=== PATIENT | female | born 1970 | race Caucasian/White ===

== ENCOUNTER 2019-07-18 13:55 | Outpatient (CLI) | payer OTHER, SELFPAY ==
--- NOTE | 2019-07-18 | US_ITS ---
WS: [id number] ULTRASOUND PELVIS TECHNIQUE: Transabdominal and transvaginal. ULTRASOUND PELVIS TECHNIQUE: Transabdominal. CLINICAL INFORMATION: EXCESSIVE AND FREQUENT MENSTARION W/ IRREGULAR CYCLE LMP: : No. COMPARISON: None. FINDINGS: Uterus Orientation: Anteverted. Size: 9.5 cm x 7.1 cm x 5.6 cm. Masses: None. Cervix: Nabothian cyst Endometrium: Echogenic and thickened Endometrium thickness: 1.5 cm. Adnexa: Numerous bilateral cystic lesions in both ovaries. Largest cysts range in size from 2 to 3 cm Right ovary size: 3.1 cm x 2.6 cm x 2.3 cm. Right ovary volume: 9.9 ccm3. Left ovary size: 4.8 cm x 3.1 cm x 2.8 cm. Left ovary volume: 22.0 ccm3 Free fluid: Present Other findings: None. US/US pelvic with transvaginal IMPRESSION: 1. Thickened endometrium measuring 15 mm. 2. Several bilateral ovarian cysts the largest in the right measuring 3.1 x 2. 3 cm and the largest in the left measuring 2.5 x 2.4 CM. 3. Small amount of free fluid in the cul-de-sac.
== END 2019-07-18 13:56 | disposition home or self-care (01) ==
PROVIDERS: Family Provider Nurse Practitioner; Visit Provider Nurse Practitioner
DX: N92.1 Excessive and frequent menstruation with irregular cycle (principal); R93.89 Abnormal findings on diagnostic imaging of other specified body structures; N83.202 Unspecified ovarian cyst, left side; N83.201 Unspecified ovarian cyst, right side
CPT/HCPCS: 76830; 76856

== ENCOUNTER → 2019-08-14 10:25 | Outpatient (BNVA) | payer OTHER, SELFPAY | PROVIDERS: Family Provider Nurse Practitioner; Referring Provider Nurse Practitioner; Visit Provider Obstetrics & Gynecology | DX: N93.9 Abnormal uterine and vaginal bleeding, unspecified (principal) | CPT/HCPCS: 84146; 84443; 85025 ==

== ENCOUNTER → 2019-08-29 13:51 | Outpatient (BNVA) | payer OTHER, SELFPAY | PROVIDERS: Family Provider Nurse Practitioner; Visit Provider Obstetrics & Gynecology | DX: N93.9 Abnormal uterine and vaginal bleeding, unspecified (principal) | CPT/HCPCS: 88305 ==

== ENCOUNTER 2019-09-07 13:43 | Outpatient (CLI) | payer OTHER, SELFPAY ==
--- NOTE | 2019-09-07 13:49 | MM_ITS ---
WS: [id number] BILATERAL SCREENING DIGITAL MAMMOGRAM WITH CAD HISTORY: SCREENING COMPARISON: 08/05/2018 and 07/29/2017 Bilateral CC and MLO views submitted. Computer aided detection analyzed. Breast composition: The breasts are heterogeneously dense, which may obscure small masses. No suspici ous masses, microcalcifications or architectural distortion. MM/[place] [id number] IMPRESSION: BI-RADS: 1-Negative FOLLOW UP: 1 Year Follow-up
== END 2019-09-07 13:44 | disposition home or self-care (01) ==
LOC: RADSHAW 13:46
PROVIDERS: PCP Nurse Practitioner; Visit Provider Nurse Practitioner
DX: Z12.31 Encounter for screening mammogram for malignant neoplasm of breast (principal)
CPT/HCPCS: 77067

== ENCOUNTER → 2020-01-02 08:55 | Outpatient (BNVA) | payer OTHER, SELFPAY | PROVIDERS: PCP Nurse Practitioner; Visit Provider Obstetrics & Gynecology | DX: Z12.4 Encounter for screening for malignant neoplasm of cervix (principal) | CPT/HCPCS: 88175 ==

== ENCOUNTER 2020-11-08 07:11 | Outpatient (CLI) | payer OTHER, SELFPAY ==
--- NOTE | 2020-11-08 07:19 | MM_ITS ---
WS: [id number] SCREENING DIGITAL MAMMOGRAM WITH CAD HISTORY: SCREENING COMPARISON: 09/07/2019, 08/05/2018 at 07/29/2017 Bilateral CC and MLO views submitted. Computer aided detection analyzed. Breast composition: The breasts are heterogeneously dense, which may obscure small masses. Increasing ovoid asymmetry measuring 8 mm near 12:00, posterior. Further evaluation is necessary. MM/[place] [id number] IMPRESSION: BI-RADS: 0-Incomplete: Need additional imaging evaluation FOLLOW UP: Need Additional Imaging RIGHT breast: Spot compression views (CC and MLO). True ML. Ultrasound to follo w if abnormality persists.
== END 2020-11-08 07:12 | disposition home or self-care (01) ==
LOC: RADSHAW 07:17
PROVIDERS: PCP Nurse Practitioner; Visit Provider Nurse Practitioner
DX: Z12.31 Encounter for screening mammogram for malignant neoplasm of breast (principal)
CPT/HCPCS: 77067

== ENCOUNTER 2020-12-12 09:17 | Outpatient (CLI) | payer OTHER, SELFPAY ==
--- NOTE | 2020-12-12 09:24 | MM_ITS ---
WS: [id number] ADDITIONAL VIEWS RIGHT BREAST HISTORY: ABNORMAL MAMMOGRAM RT BREAST COMPARISON: 11/08/2020, 09/07/2019 and 08/05/2018 Compression views right CC and MLO projection. True ML also submitted. Focal asymmetry of increased density seen best on the RIGHT CC projection resolves with additional im aging. There is no corresponding abnormality on the additional views. Mild asymmetry towards the axil billy tail is similar to prior studies. No additional imaging necessary. MM/[place] [id number] IMPRESSION: BI-RADS: 2-Benign FOLLOW-UP: 1 Year Follow-up
== END 2020-12-12 09:18 | disposition home or self-care (01) ==
LOC: RADSHAW 09:20
PROVIDERS: PCP Nurse Practitioner; Visit Provider Nurse Practitioner
DX: R92.8 Other abnormal and inconclusive findings on diagnostic imaging of breast (principal); N64.89 Other specified disorders of breast
CPT/HCPCS: 77065

== ENCOUNTER 2021-11-19 07:44 | Outpatient (CLI) | payer OTHER, SELFPAY ==
--- NOTE | 2021-11-19 07:57 | MM_ITS ---
WS: [id number] BILATERAL SCREENING DIGITAL TOMOSYNTHESIS MAMMOGRAM WITH CAD HISTORY: SCREENING COMPARISON: 12/12/2020, 11/08/2020 and 09/07/2019 Bilateral CC and MLO views with tomosynthesis and synthetic mammography submitted. Computer aided det ection analyzed. Breast composition: There are scattered areas of fibroglandular density. No suspicious masses, microc alcifications or architectural distortion. MM/[place] [id number] IMPRESSION: BI-RADS: 1-Negative FOLLOW UP: 1 Year Follow-up
== END 2021-11-19 07:45 | disposition home or self-care (01) ==
PROVIDERS: PCP Nurse Practitioner Family; Visit Provider Nurse Practitioner Family
DX: Z12.31 Encounter for screening mammogram for malignant neoplasm of breast (principal)
CPT/HCPCS: 77063; 77067

== ENCOUNTER 2022-12-04 07:40 | Outpatient (CLI) | payer OTHER, SELFPAY ==
--- NOTE | 2022-12-04 07:44 | MM_ITS ---
WS: [id number] BILATERAL SCREENING DIGITAL TOMOSYNTHESIS MAMMOGRAM WITH CAD HISTORY: SCREEN COMPARISON: 11/19/2021 and 12/12/2020 Bilateral CC and MLO views with tomosynthesis and synthetic mammography submitted. Computer aided det ection analyzed. Breast composition: There are scattered areas of fibroglandular density. No suspicious masses, microc alcifications or architectural distortion. IMPRESSION: MM/[place] [id number] BI-RADS: 1-Negative FOLLOW UP: 1 Year Follow-up
== END 2022-12-04 07:41 | disposition home or self-care (01) ==
PROVIDERS: PCP Nurse Practitioner Family; Visit Provider Nurse Practitioner Family
DX: Z12.31 Encounter for screening mammogram for malignant neoplasm of breast (principal)
CPT/HCPCS: 77063; 77067

== ENCOUNTER 2023-12-10 10:40 | Outpatient (CLI) | payer BC, SELFPAY ==
--- NOTE | 2023-12-10 10:44 | MM_ITS ---
WS: [id number] BILATERAL 3D TOMOSYNTHESIS DIGITAL SCREENING MAMMOGRAPHY WITH CAD CLINICAL INFORMATION: SCREENING HISTORY: Screening mammogram. No current complaints. COMPARISON: 2022 TECHNIQUE: Bilateral CC and MLO views. FINDINGS: The breasts are composed of heterogeneous fibroglandular density tissue, which can limit the detectio n of small underlying mass lesions. No suspicious mass, asymmetry, calcifications, or architectural d istortion. No evidence of malignancy. Incidental punctate calcifications. MM/MM [facility] tomosynthesis [id number] IMPRESSION: DENSITY: The breasts are heterogeneously dense, which may obscure small masses. BI-RADS: 2 - Benign FOLLOW UP: 1 Year Follow-up Recommend return to annual screening mammography.
== END 2023-12-10 10:41 | disposition home or self-care (01) ==
PROVIDERS: PCP Nurse Practitioner Family; Visit Provider Nurse Practitioner Family
DX: Z12.31 Encounter for screening mammogram for malignant neoplasm of breast (principal); R92.333 Mammographic heterogeneous density, bilateral breasts; R92.1 Mammographic calcification found on diagnostic imaging of breast
CPT/HCPCS: 77063; 77067

== ENCOUNTER → 2024-11-28 07:36 | Outpatient (BNVA) | payer BC, SELFPAY | PROVIDERS: PCP Nurse Practitioner Family; Visit Provider Registered Nurse Neonatal Intensive Care | DX: J02.8 Acute pharyngitis due to other specified organisms (principal); B97.89 Other viral agents as the cause of diseases classified elsewhere | CPT/HCPCS: 87071; 87880 ==

== ENCOUNTER 2024-12-18 07:47 | Outpatient (CLI) | payer BC, SELFPAY ==
--- NOTE | 2024-12-18 07:52 | MM_ITS ---
WS: [id number] BILATERAL SCREENING DIGITAL TOMOSYNTHESIS MAMMOGRAM WITH CAD HISTORY: SCREENING COMPARISON: 12/10/2023, 12/04/2022, 11/19/2021 Bilateral CC and MLO views with tomosynthesis and synthetic mammography submitted. Computer aided detection analyzed. Breast composition: The breasts are heterogeneously dense, which may obscure small masses. No suspicious masses, microcalcifications or architectural distortion. Benign calcifications in each breast. MM/MM scr tomosynthesis [id number] IMPRESSION: BI-RADS: 2 - Benign FOLLOW UP: 1 Year Follow-up
== END 2024-12-18 07:48 | disposition home or self-care (01) ==
LOC: RAD 07:47
PROVIDERS: PCP Nurse Practitioner Family; Visit Provider Nurse Practitioner Family
DX: Z12.31 Encounter for screening mammogram for malignant neoplasm of breast (principal); R92.333 Mammographic heterogeneous density, bilateral breasts; R92.1 Mammographic calcification found on diagnostic imaging of breast
CPT/HCPCS: 77063; 77067